=== PATIENT | male | born 1955 | race Caucasian/White ===

== ENCOUNTER 2017-03-11 08:49 | Emergency (ER) | payer OTHER ==
[~2017-03-11] VITALS: Ht 167.6 cm; Wt 88.5 kg
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
--- NOTE | 2017-03-11 10:24 | RADIOLOGY REPORT ---
EXAMINATION: XR WRIST, RIGHT CLINICAL INFORMATION: Fall, pain. COMPARISON: None TECHNIQUE: AP, lateral, and oblique views of the right wrist. Lumbar spine 4 views FINDINGS: RIGHT WRIST: There is a comminuted distal radial fracture with intra-articular extension. There is a minimally displaced ulnar styloid process fracture as well. However there is no angulation seen. The soft tissues are normal. LUMBAR SPINE: There is normal lumbar lordosis. The vertebral heights and alignment appears normal. There is calcification of the anterior longitudinal ligament suggestive of ankylosing spondylitis. No visible acute fracture or dislocation seen. IMPRESSION: Ankylosing spondylitis throughout lumbar spine without visible acute fracture or lytic process. Comminuted fracture with intra-articular extension distal radius. Minimally displaced ulnar styloid process fracture as well. Mild soft tissue swelling.
[2017-03-11] MEDS ORDERED: IBUPROFEN800 M1 PO (11:09)
[2017-03-11] MEDS ORDERED: PERCOCET 5-3251 EACH PO (11:09)
[2017-03-11 11:19] VITALS: BP 192/86
== END 2017-03-11 11:35 ==
LOC: ERH 08:49
DX: S52.571A Other intraarticular fracture of lower end of right radius, initial encounter for closed fracture (principal); S52.611A Displaced fracture of right ulna styloid process, initial encounter for closed fracture; S39.012A Strain of muscle, fascia and tendon of lower back, initial encounter; W19.XXXA Unspecified fall, initial encounter; Y93.9 Activity, unspecified; Y92.009 Unspecified place in unspecified non-institutional (private) residence as the place of occurrence of the external cause
CPT/HCPCS: 72110; 73110-RT